=== PATIENT | male | born 1935 | race Caucasian/White ===

== ENCOUNTER → 2016-05-13 | Outpatient (CLI) | payer MEDICARE, OTHER ==
[~2016-05-13] MED LIST: CENTRUM SILVER1 EAC1 PO; COLACE-DPS100 MG PO; COREG25 MG PO; DIOVAN160 MG PO; DIOVAN80 MG PO; HYDROCODON-ACE1 EAC2 PO; MAALOX DPS30 ML PO; NORVASC5 MG PO; PRESERVISION L1 EACH PO; PRILOSEC DPS20 MG PO; SINEMET 25-1001 EACH PO; SURFAK DPS240 MG PO; TYLENOL DPS325 MG PO; VITAMIN D-32000 UNI1 PO
== END | disposition home or self-care (01) ==
LOC: RAD.S 09:10
DX: R13.19 Other dysphagia (principal); K21.9 Gastro-esophageal reflux disease without esophagitis